=== PATIENT | female | born 1975 | race Native Hawaiian/Other Pacific Islander ===

== ENCOUNTER 2016-03-27 18:04 | Emergency (ER) | payer BC ==
[~2016-03-27] VITALS: Ht 162.6 cm; Wt 68.0 kg
[~2016-03-27 18:04] MED LIST: ADDERALL15 MG OR; LEVO0.0723 PO; LEVO0.1224 PO; SYNTHROID50 MCG PO
[2016-03-27 19:10] LABS: PLATELET COUNT 288 K/uL (152-353)
[2016-03-27 19:18] LABS: POTASSIUM 3.6 mmol/L (3.6-5.2); SODIUM 136 mmol/L (136-145)
[2016-03-27 19:35] LABS: PARTIAL THROMBOPLASTIN TIME 24.7 SECONDS (24.5-33.6)
[2016-03-27 20:52] VITALS: BP 111/67; TEMP 98.3
== END 2016-03-27 21:07 | disposition home or self-care (01) ==
LOC: ED 18:04
PROVIDERS: Emergency Medicine
DX: R00.0 Tachycardia, unspecified (principal); E05.90 Thyrotoxicosis, unspecified without thyrotoxic crisis or storm
CPT/HCPCS: 80053; 84443; 84484; 85027; 85610; 85730; 99284; J2060

== ENCOUNTER 2018-02-19 12:24 | Outpatient (CLI) | payer BC | END 2018-02-19 21:45 | disposition home or self-care (01) | LOC: LAB 12:24 → RAD 12:24 | DX: R11.0 Nausea (principal); R07.9 Chest pain, unspecified; R06.02 Shortness of breath; R20.2 Paresthesia of skin | CPT/HCPCS: 82550; 82553; 82607; 84439; 84443; 84484 ==

== ENCOUNTER 2019-04-22 10:36 | Outpatient (CLI) | payer OTHER | END 2019-04-22 10:37 | disposition short-term general hospital (02) | LOC: AMB 10:36 | DX: R07.9 Chest pain, unspecified (principal); R11.0 Nausea | CPT/HCPCS: A0425; A0427 ==

== ENCOUNTER 2019-04-22 10:40 | Emergency (ER) | payer OTHER ==
[~2019-04-22] VITALS: Ht 162.6 cm; Wt 77.1 kg
[2019-04-22 10:40] VITALS: TEMP 99.3
[2019-04-22 10:59] LABS: PLATELET COUNT 277 K/uL (152-353)
[2019-04-22 11:04] LABS: POTASSIUM 4.5 mmol/L (3.6-5.2); SODIUM 140 mmol/L (136-145)
[2019-04-22 11:21] LABS: PARTIAL THROMBOPLASTIN TIME 25.5 SECONDS (24.5-33.6)
[2019-04-22 12:00] VITALS: BP 112/89
== END 2019-04-22 12:24 | disposition home or self-care (01) ==
LOC: ED 10:40
PROVIDERS: Hospitalist
DX: R07.89 Other chest pain (principal)
CPT/HCPCS: 36415; 80053; 82550; 83880; 84484; 85027; 85379; 85610; 85730; 93005; 99284; J2270

== ENCOUNTER 2020-07-15 01:49 | Emergency (ER) | payer BC ==
[~2020-07-15] VITALS: Ht 162.6 cm; Wt 77.1 kg
[2020-07-15 02:36] LABS: PLATELET COUNT 278 K/uL (152-353)
[2020-07-15 02:39] LABS: POTASSIUM 3.8 mmol/L (3.6-5.2); SODIUM 141 mmol/L (136-145)
[2020-07-15 02:49] LABS: PARTIAL THROMBOPLASTIN TIME 24.7 SECONDS (24.5-33.6)
[2020-07-15 05:43] VITALS: BP 126/76; TEMP 98.1
== END 2020-07-15 05:43 | disposition home or self-care (01) ==
LOC: ED 01:49
PROVIDERS: Family Medicine
DX: R20.2 Paresthesia of skin (principal); T42.6X5A Adverse effect of other antiepileptic and sedative-hypnotic drugs, initial encounter; Y92.89 Other specified places as the place of occurrence of the external cause
CPT/HCPCS: 36415; 80053; 81000; 84484; 85027; 85610; 85730; 93005; 96374; 96375; 99284; J1200; J2405

== ENCOUNTER 2021-02-22 08:05 | Outpatient (CLI) | payer BC | END 2021-02-22 19:21 | disposition home or self-care (01) | LOC: MAMMO 08:05 | PROVIDERS: ATTEND Nurse Practitioner Family | DX: Z12.31 Encounter for screening mammogram for malignant neoplasm of breast (principal) ==

== ENCOUNTER 2021-03-15 12:02 | Outpatient (CLI) | payer BC, OTHER ==
[2021-03-15 13:19] LABS: PLATELET COUNT 315 K/uL (152-353)
[2021-03-15 13:38] LABS: POTASSIUM 4.5 mmol/L (3.6-5.2)
== END 2021-03-15 19:12 | disposition home or self-care (01) ==
LOC: LAB 12:02 → RAD 12:02
PROVIDERS: ATTEND Nurse Practitioner Family
DX: U07.1 COVID-19 (principal)
CPT/HCPCS: 80053; 85027

== ENCOUNTER 2022-03-15 13:17 | Outpatient (CLI) | payer BC | END 2022-03-15 19:12 | disposition home or self-care (01) | LOC: MAMMO 13:17 | PROVIDERS: ATTEND Nurse Practitioner Family | DX: Z12.31 Encounter for screening mammogram for malignant neoplasm of breast (principal) ==

== ENCOUNTER 2022-09-18 11:29 | Outpatient (CLI) | payer BC | END 2022-09-18 19:58 | disposition home or self-care (01) | LOC: RAD 11:29 | PROVIDERS: ATTEND Nurse Practitioner Family | DX: R13.19 Other dysphagia (principal) ==

== ENCOUNTER 2022-10-02 14:50 | Outpatient (CLI) | payer BC | END 2022-10-02 19:10 | disposition home or self-care (01) | LOC: MAMMO 14:50 | PROVIDERS: ATTEND Nurse Practitioner Family | DX: N63.20 Unspecified lump in the left breast, unspecified quadrant (principal) | CPT/HCPCS: G0279 ==

== ENCOUNTER 2022-11-05 13:09 | Outpatient (CLI) | payer BC | END 2022-11-05 22:07 | disposition home or self-care (01) | LOC: MAMMO 13:09 | PROVIDERS: ATTEND Nurse Practitioner Family | DX: N63.10 Unspecified lump in the right breast, unspecified quadrant (principal) | CPT/HCPCS: G0279 ==

== ENCOUNTER 2023-04-16 08:03 | Outpatient (CLI) | payer BC | END 2023-04-16 19:01 | disposition home or self-care (01) | LOC: US 08:03 | PROVIDERS: ATTEND Nurse Practitioner Family | DX: R19.01 Right upper quadrant abdominal swelling, mass and lump (principal); R51.9 Headache, unspecified ==